=== PATIENT | male | born 1955 | race Caucasian/White ===

== ENCOUNTER 2017-03-16 09:19 | Emergency (ER) | payer MEDICAID, SELFPAY ==
[~2017-03-16] VITALS: Ht 172.7 cm; Wt 82.8 kg
[2017-03-16 09:20] VITALS: BP 146/95
== END 2017-03-16 12:45 | disposition left against medical advice (07) ==
LOC: ED 12:38
DX: G89.29 Other chronic pain (principal); M54.9 Dorsalgia, unspecified
CPT/HCPCS: 99281